=== PATIENT | female | born 1940 | race Caucasian/White ===

== ENCOUNTER → 2017-02-28 | Outpatient (CLI) | payer OTHER, MEDICARE ==
--- NOTE | 2017-02-28 16:46 | DI ---
XR HIP COMPLETE MIN 2VW U/L,02/28/2017 11:30 AM: Clinical History: Primary osteoarthritis of the right hip Previous Exam: February 26, 2016 Findings: AP and frog-leg views of the right hip are obtained, and demonstrate postsurgical changes system with left total hip arthroplasty. There is complete loss of joint space with eburnation and osteophyte fo rmation. Impression: Advanced degenerative osteoarthritis of the right hip.
== END ==
LOC: ORTHO 11:46
PROVIDERS: ATTEND Orthopaedic Surgery
DX: M16.11 Unilateral primary osteoarthritis, right hip (principal)
CPT/HCPCS: 73502

== ENCOUNTER → 2017-03-28 | Outpatient (CLI) | payer OTHER, MEDICARE ==
[2017-03-28 12:04] LABS: HEMATOCRIT 37.1 % (37.0-47.0); HEMOGLOBIN 12.2 g/dL (12.0-16.0); MEAN CORPUSCULAR HGB CONC 32.9 g/dL (33-37); MEAN CORPUSCULAR VOLUME 94.4 FL (81-99); MEAN PLATELET VOLUME 10.2 FL (7.4-12.2); RED BLOOD COUNT 3.93 10^6/uL (4.20-5.40)
[2017-03-28 12:26] LABS: CALCIUM 10.4 mg/dL (8.7-10.7)
--- NOTE | 2017-03-28 12:27 | EKG ---
[address] [address] Measurements Intervals [place] Rate: 83 P: 67 MO: 178 QRS: 37 QRSD: 98 T: 60 QT: 362 QTc: 401 Interpretive Statements SINUS RHYTHM WITH FREQUENT VENTRICULAR PREMATURE COMPLEXES ABNORMAL RHYTHM ECG Compared to ECG 01/27/2013 13:32:11 Ventricular premature complex(es) now present Left-axis deviation no longer present Electronically Signed On 03-31-17 08:51:39 MDT by Rock Ba MD [email or web address]
[2017-03-28 16:23] LABS: BILIRUBIN,URINE NEGATIVE (NEG); CLARITY,URINE CLEAR (CLEAR); COLOR,URINE YELLOW; GLUCOSE, URINE (UA) NEGATIVE (NEG); NITRATE,URINE NEGATIVE (NEG); OCCULT BLOOD,URINE NEGATIVE (NEG); PROTEIN,URINE NEGATIVE (NEG); UROBILINOGEN,URINE 0.2 mg/dL (0.2)
[2017-03-28 16:29] LABS: SQUAMOUS EPITHELIAL CELL,UR RARE; URINE CRYSTALS FEW; URINE SAMPLE TYPE VOID
== END ==
LOC: EKG 11:38
PROVIDERS: ATTEND Orthopaedic Surgery
DX: M16.11 Unilateral primary osteoarthritis, right hip (principal); M25.561 Pain in right knee; I10 Essential (primary) hypertension; E66.9 Obesity, unspecified; I49.3 Ventricular premature depolarization
CPT/HCPCS: 36415; 80048; 81001; 85027; 85652; 86140; 86850; 87641; 93005; 93010; 99214